=== PATIENT | male | born 1955 | race Caucasian/White ===

== ENCOUNTER 2022-10-31 10:29 | Day surgery (SDC) | payer BC ==
[2022-10-27 14:43] LABS: BASOPHILS # (AUTO) 0.1 X10'3 (0-0.2); EOSINOPHILS # (AUTO) 0.2 X10'3 (0-0.9); EOSINOPHILS % (AUTO) 3.1 % (0-6); HEMATOCRIT 41.9 % (42.0-52.0); HEMOGLOBIN 13.9 g/dl (14.0-17.9); LYMPHOCYTES # (AUTO) 1.4 X10'3 (1.1-4.8); LYMPHOCYTES % (AUTO) 18.2 % (21-51); MEAN CORPUSCULAR HEMOGLOBIN 30.1 PG (27.0-31.0); MEAN CORPUSCULAR HGB CONC 33.2 g/dL (33.0-36.5); MEAN CORPUSCULAR VOLUME 90.7 FL (78-98); MEAN PLATELET VOLUME 7.6 FL (7.4-10.4); MONOCYTES # (AUTO) 0.6 X10'3 (0-0.9); MONOCYTES % (AUTO) 7.9 % (2-12); NEUTROPHILS # (AUTO) 5.5 X10'3 (1.8-7.7); NEUTROPHILS % (AUTO) 69.8 % (42-75); PLATELET COUNT 263 X10'3 (140-440); RED BLOOD COUNT 4.62 X10'6 (4.70-6.10); RED CELL DISTRIBUTION WIDTH 14.6 % (11.5-14.5); WHITE BLOOD COUNT 7.9 X10'3 (4.5-11.0)
[2022-10-27 14:49] LABS: ALBUMIN 3.5 G/DL (3.4-5.0); ANION GAP 10 (8-16); BLOOD UREA NITROGEN 22 MG/DL (7-18); BUN/CREATININE RATIO 23.2 (10.0-20.0); CALCIUM 9.4 MG/DL (8.5-10.1); CHLORIDE 101 MMOL/L (99-107); CREATININE 0.95 MG/DL (0.60-1.10); GLUCOSE 185 MG/DL (70-104); POTASSIUM 4.8 MMOL/L (3.5-5.1); SODIUM 139 MMOL/L (135-145); TOTAL CARBON DIOXIDE 27.9 MMOL/L (24-32); eGFR 80 ML/MIN
[2022-10-27 15:06] LABS: APTT 28 SECONDS (22-32)
[2022-10-31] VITALS (12 sets, daily range): BP systolic 135–169; BP diastolic 67–97
[~2022-10-31] VITALS: Ht 180.3 cm; Wt 228.8 kg
[~2022-10-31 10:29] MED LIST: AMIO200T61 PO; APIX5TAB3 PO; ASPI-612 PO; CHRO400T10 PO; GLUC100017 PO; IMD30T PO; INSU300I3 SQ; LEVO112T61 PO; METF-504 PO; OMEG500C PO; PROP40TA72 PO; SITA1TAB2 PO; THIO50CA PO; VITC500T PO; ZINC1CAP3 PO; [UNRECOGNIZED DRUG - CODE] PO; [UNRECOGNIZED DRUG - CODE] PO
[2022-10-31] MEDS ORDERED: fentaNYL/PF 50MCG/1 ML 2ML syringe IV ONE ×2 (10:45→11:35)
[2022-10-31] MEDS ORDERED: MIDAZolam 1mg/ml 10ml vial IV ONE ×2 (10:45→11:35)
[2022-10-31] MEDS ORDERED: normal saline 1000ml 1,000 ML IV SCH (10:45)
[2022-10-31] MEDS ORDERED: VITAMIN D PO (11:41)
[2022-10-31] MEDS ORDERED: ROSU5TAB12 PO (11:41)
[2022-10-31] MEDS ORDERED: LISI40TA13 PO (11:41)
[2022-10-31] MEDS ORDERED: AMLO10TA13 PO (11:41)
[2022-10-31] MEDS ORDERED: VITAMIN D3 PO (11:41)
[2022-10-31] MEDS ORDERED: INSU100I34 SQ (11:41)
[2022-10-31] MEDS ORDERED: UBID50TA3 PO (11:41)
[2022-10-31] MEDS ORDERED: MAGNESIU PO (11:41)
[2022-10-31] MEDS ORDERED: LEVO112T52 PO (11:41)
[2022-10-31] MEDS ORDERED: NITR0.4T51 SL (11:41)
== END 2022-10-31 15:15 | disposition home or self-care (01) ==
LOC: SSTAY O 10:29
PROVIDERS: ATTEND Student in an Organized Health Care Education/Training Program
DX: I48.0 Paroxysmal atrial fibrillation (principal); E66.01 Morbid (severe) obesity due to excess calories; Z68.45 Body mass index [BMI] 70 or greater, adult; I10 Essential (primary) hypertension; E03.9 Hypothyroidism, unspecified; G47.33 Obstructive sleep apnea (adult) (pediatric); E11.9 Type 2 diabetes mellitus without complications; I65.29 Occlusion and stenosis of unspecified carotid artery; Z79.4 Long term (current) use of insulin; Z79.899 Other long term (current) drug therapy; Z79.82 Long term (current) use of aspirin; Z79.01 Long term (current) use of anticoagulants; Z88.1 Allergy status to other antibiotic agents; Z88.8 Allergy status to other drugs, medicaments and biological substances
CPT/HCPCS: 36415; 80048; 85025; 85610; 85730; 92960; 93005; J7030; A4620